=== PATIENT | female | born 1935 | race Caucasian/White ===

== ENCOUNTER 2017-11-16 08:40 | Emergency (ER) | payer MEDICARE ==
[~2017-11-16] VITALS: Ht 147.3 cm; Wt 46.7 kg
[~2017-11-16 08:40] MED LIST: APRISO0.375 GM PO; DAILY VITAMIN1 EAC3 PO; DICYCLOMINE HCL20 MG PO; ENTOCORT EC3 MG; HYOSCYAMINE0.125 M2 PO; LASIX20 MG PO; LOMOTIL TABLET1 EACH PO; OCUVITE TABLET1 EAC1 PO; POTASSIUM CHLO20 ME1; PREVACID30 MG PO; PROAIR HFA INH8.5 GM INH; PROBIOTIC & AC1 EACH; QUININE SULFAT324 MG PO; SPIRIVA18 MCG IH; TEMAZEPAM30 MG PO; ULTRAM 50MG50 MG PO; ZOLOFT50 MG PO
--- OUTSIDE RECORDS SUMMARY | 2017-11-16 08:43 | XMS REPORT ---
Author Organization Unknown Address [address] [place] [id number] Phone [phone] Care Team Providers Care Professor Of Biostatistics Name Role Phone RADHA STRANGE MD 82 [phone] STANTON STRANGE MD 114 [phone] DELFINO ESPINOZA MD 107 [phone] DIANN ANNE MD 126 [phone] Allergies Code Code System Name Reaction Severity Status Onset 2670 RxNorm Codeine Active Penicillins Active Notes: MYCINS Medications Name Status Start Date Stop Date albuterol sulfate 2.5 mg/3 mL (0.083 %) solution for nebulization Inhale 3 mL every 6 hours by nebulization route as needed for 10 days. Completed 03/11/2017 Apriso 0.375 gram capsule,extended release Active Not available Zithromax Z-Pacheco 250 mg tablet TAKE 2 TABLETS (500 MG) BY ORAL ROUTE ONCE DAILY FOR 1 DAY THEN 1 TABLET (250 MG) BY ORAL ROUTE ONCE DAILY FOR 4 DAYS Completed 11/10/2016 benzonatate 100 mg capsule Completed 07/07/2016 Breo Ellipta 100 mcg-25 mcg/dose powder for inhalation Active Not available Breo Ellipta 200 mcg-25 mcg/dose powder for inhalation Completed [address] - ER 3 mg capsule,delayed,extended release Active Not available cefdinir 300 mg capsule Completed 01/13/2017 ciprofloxacin 500 mg tablet Completed 07/07/2016 colestipol 1 gram tablet Active Not available dicyclomine 10 mg capsule Completed 05/13/2017 dicyclomine 20 mg tablet Active Not available diphenoxylate-atropine 2.5 mg-0.025 mg tablet Active Not available famotidine 20 mg tablet Completed 07/07/2016 fluticasone 50 mcg/actuation nasal spray,suspension [place] 1 spray twice a day by nasal route. Completed 02/10/2017 furosemide 40 mg tablet TAKE ONE TABLET BY MOUTH ONCE A DAY Active Not available Incruse Ellipta 62.5 mcg/actuation powder for inhalation ONCE IN THE AM Active Not available Klor-Con M20 mEq tablet,extended release every 24 hours by oral route. Active Not available lansoprazole 30 mg capsule,delayed release Active Not available Levaquin 500 mg tablet Take every 24 hours by oral route. Completed 02/10/2017 levocetirizine 5 mg tablet Completed 07/07/2016 metronidazole 250 mg tablet Completed 07/07/2016 metronidazole 500 mg tablet Completed 07/07/2016 minocycline 100 mg capsule Completed 11/11/2017 mupirocin 2 % topical ointment Completed 11/11/2017 prednisone 20 mg tablet Completed 07/07/2016 sertraline 100 mg tablet Take 1 tablet every day by oral route. Active Not available sertraline 25 mg tablet TAKE 1 TABLET BY MOUTH EVERY DAY Completed 02/10/2017 sertraline 50 mg tablet Take every 24 hours by oral route. Completed 02/10/2017 Spiriva Respimat 2.5 mcg/actuation solution for inhalation Use 2 puffs daily every morning Completed 11/11/2017 Spiriva with HandiHaler 18 mcg and inhalation capsules Inhale 1 capsule every day by inhalation route. Completed 08/12/2017 sucralfate 1 gram tablet TAKE ONE GRAM 3 TIMES A DAY Active Not available sulfamethoxazole 800 mg-trimethoprim 160 mg tablet Completed 05/13/2017 temazepam 30 mg capsule Take 1 capsule every day by oral route at bedtime. Active Not available tizanidine 2 mg tablet Take 1 tablet as needed by oral route at bedtime for 30 days. Active Not available tramadol 50 mg tablet Active Not available Ventolin HFA 90 mcg/actuation aerosol inhaler Active Not available Zostavax (PF) 19,400 unit/0.65 mL subcutaneous suspension Completed 2017 Problems Name Status Onset Date Source Major Depressive Disorder Active 11/10/2016 Insomnia Active 11/10/2016 Chronic Obstructive Lung Disease Unknown 11/10/2016 Chronic Obstructive Lung Disease Active 11/10/2016 Crohn's Disease Active 11/10/2016 Procedures Date Name Performed by 08/24/2016 Colonoscopy Information not available 08/24/2009 Cancer Surgery Notes: BLADDER Information not available 08/24/2004 Gastrointestinal Surgery Information not available 08/24/2004 Colonoscopy W/resection Information not available 08/24/2001 Cataract Surgery Information not available 08/24/1986 Breast Surgery Information not available 08/24/1971 Hysterectomy (Partial) Information not available Lab Results Date Name Specimen Result Interpretation Description Value Range Status Address 11/10/2016 CMP, Serum or Plasma Alt 17 U/L 0-55 U/L Final [facility]: [address] Ast 21 U/L 5-34 U/L Final [facility]: [address] Bun 13 mg/dL 7-20 mg/dL Final [facility]: [address] Alk Phos 106 unit/L 40-150 unit/L Final [facility]: [address] Glucose 94 mg/dL 70-99 mg/dL Final [facility]: [address] Albumin 3.5 g/dL 3.5-5.0 g/dL Final [facility]: [address] Creatinine 0.65 mg/dL 0.57-1.11 mg/dL Final [facility]: [address] eGFR Non- >60 mL/min/1.73m2 >60 mL/min/ 1.73m2 Final [facility]: [address] Total Bilirubin 0.3 mg/dL 0.2-1.2 mg/dL Final [facility]: [address] eGFR - >60 mL/min/1.73m2 >60 mL/min/1.73m2 Final [facility]: [address] Sodium 143 mEq/L 137-144 mEq/L Final [facility]: [address] Potassium 4.5 mEq/L 3.5-5.0 mEq/L Final [facility]: [address] Chloride 104 mmol/L 101-110 mmol/L Final [facility]: [address] Low Total Protein 6.3 g/dL 6.4-8.3 g/dL Final [facility]: [address] Calcium 9.5 mg/dL 8.4-10.2 mg/dL Final [facility]: [address] [place] [address], [place] Co2 28.2 mmol/L 22.0-31.0 mmol/L Final [facility]: [address] [place] [address], [place] Anion Gap 11 calc Final [facility]: [address] [place] [address], [place] Pulse Oximetry No observation recorded. [facility]: [id number] Past Encounters 11/11/2017 Insomnia; Mild Depression; Cramp in Lower Limb; Crohn's Disease; Atherosclerosis of Aorta; Acute Exacerbation of Chronic Obstructive Airways Disease; Body Mass Index 20-24 - Normal Filiberto Baker MD: [address] [place] [phone], Ph. [phone] 08/12/2017 Insomnia; Major Depressive Disorder; Lymphedema of Lower Extremity Filibertoscar Baker MD: [address] [place] [phone], Ph. 05/13/2017 Major Depressive Disorder; Insomnia; Pneumococcal Vaccination; Influenza Vaccination; Viral Immunization Filiberto Baker MD: [address] [place] [phone], Ph. 03/11/2017 Adult Health Examination; Advance Directive Discussed with Patient; Body Mass Index 20-24 - Normal; At Risk for Falls; Cellulitis of Lower Limb Filiberto Baker MD: [address] [place] [phone], Ph. [phone] 02/10/2017 Mild Depression; Insomnia; Hypoxemia Filiberto Baker MD: [address] [place] [phone], Ph. 01/13/2017 Major Depressive Disorder; Insomnia; Crohn's Disease; Atherosclerosis of Aorta Noemí Sauer MD: [address] [place] [phone], Ph. 12/01/2016 Acute Exacerbation of Chronic Obstructive Airways Disease; Acute Sinusitis Filibertoscar [place], MD: [address] [place] [phone], Ph. 11/26/2016 Acute Sinusitis; Acute Exacerbation of Chronic Obstructive Airways Disease Filiberto Baker MD: [address] [place] [phone], Ph. 11/10/2016 Insomnia; Lymphedema of Lower Extremity Filibertoscar Baker MD: [address] [place] [phone], Ph. [phone] 07/07/2016 Benign Essential Hypertension; Mixed Anxiety and Depressive Disorder; Acute Otitis Media Tiburcio Ramirez MD: [address] [place] [phone], Ph. 05/28/2016 Influenza Vaccination Tiburcio Ramirez MD: [address] [place] [phone], Ph. Social History Smoking Status Never Smoker (1/2 PPD) Vaccine List Vaccine Type influenza, high dose seasonal 05/28/20160.5 mL 05/13/20170.5 mL pneumococcal conjugate PCV 13 05/13/20170.5 mL Pneumococcal Conjugate, unspecified formulation 08/24/2005 zoster 05/13/20170.65 mL Plan of Care Patient Instructions It was good to see you in the office today for your Medicare Annual Wellness Visit. You have been provided some information on healthy nutrition, including a diet rich in fruits and vegetables, minimizing simple carbohydrates, salt, and saturated fats. I want to encourage regular cardiovascular exercise such as walking at least 30 minutes daily, 5 times per week. Please remember to schedule any preventive health measures that we talked about today. You have also been provided education on fall prevention and community- based lifestyle interventions to help reduce health risks and promote healthy living in your [employer] folder. Screening Recommendations 1. Vaccines Pneumococcal: discussed today and information sent with patient in their [place] [facility] health folder Influenza: discussed today and information sent with patient in their [place] [facility] health folder Shingles: discussed today and information sent with patient in their [place] [facility] health folder Tetanus: discussed today and information sent with patient in their [place] [facility] health folder 2. Mammography Screening: discussed today and information sent with patient in their [place] [facility] health folder 3. Colorectal cancer Screening Colonoscopy: discussed today and information sent with patient in their [place] [facility] health folder Fecal Occult Blood: discussed today and information sent with patient in their [place] [facility] health folder 4. Bone Mass Measurement: discussed today 5. Pap test / Pelvic Exam Screening: discussed today 6. Eye Exam Screening: discussed today 7. Cholesterol Screening: discussed today 8. Diabetes Screening: discussed today Reminders Provider Appointments None recorded. Lab None recorded. Referral None recorded. Procedures None recorded. Surgeries None recorded. Imaging None recorded. Vitals 11/11/2017 01:30PM Est Patient Height Weight BMI Blood Pressure 4 ft 10 in 104 lbs 21.7 kg/m2 126/74 mm[Hg] 08/12/2017 01:30PM Est Patient Height Weight BMI Blood Pressure 4 ft 10 in 110 lbs 23 kg/m2 138/72 mm[Hg] 05/13/2017 01:30PM Est Patient Height Weight BMI Blood Pressure 4 ft 10 in 107 lbs 22.4 kg/m2 132/70 mm[Hg] 03/11/2017 03:30PM Work In Same Day Height Weight BMI Blood Pressure 4 ft 10 in 107 lbs 22.4 kg/m2 128/76 mm[Hg] 02/10/2017 01:30PM Est Patient Height Weight BMI Blood Pressure 4 ft 10 in 108 lbs 22.6 kg/m2 122/62 mm[Hg] 01/13/2017 02:15PM Est Patient Height Weight BMI Blood Pressure 4 ft 10 in 110 lbs 23 kg/m2 120/84 mm[Hg] 12/01/2016 04:00PM Est Patient Height Weight Blood Pressure 4 ft 10 in 138/58 mm[Hg] 11/26/2016 03:30PM Work In Same Day Height Weight BMI Blood Pressure 4 ft 10 in 104 lbs 21.7 kg/m2 125/72 mm[Hg] 11/10/2016 02:00PM Est Patient Height Weight BMI Blood Pressure 4 ft 10 in 105 lbs 21.9 kg/m2 140/70 mm[Hg] 07/07/2016 01:00PM Est Patient Height Weight BMI Blood Pressure 4 ft 10 in 100 lbs 20.9 kg/m2 128/72 mm[Hg]
[2017-11-16] MEDS ORDERED: ALBUTEROL/IPRATROPIUM 3 ML NEB NEB ONE ×2 (09:15→11:30)
--- NOTE | 2017-11-16 09:49 | Diagnostic Imaging Report ---
PROCEDURE: X-RAY CHEST, TWO VIEWS COMPARISON: 03/12/2016. INDICATIONS: SHORTNESS OF BREATH, FLUID IN LUNGS FINDINGS: Lungs are well-inflated. No consolidation, pleural effusion, or pneumothorax. Stable cardiomediastinal contour with cardiomegaly and a large hiatal hernia. Tortuosity and atherosclerotic calcification of the thoracic aorta. Scoliotic curvature of the thoracic spine is unchanged. No acute osseous abnormality. CONCLUSION: No acute cardio pulmonary abnormality. Dictated by: Mook Rey M.D. on 11/16/2017 at 9:49 Electronically approved by: Mook Rey M.D. on 11/16/2017 at 9:49
[2017-11-16 09:51] LABS: BASOPHILS % 0.3 % (0.0-1.0); EOSINOPHILS # (AUTO) 0.1 (0.0-0.4); HEMATOCRIT 43.3 % (34.2-44.1); HEMOGLOBIN 13.5 g/dL (12.0-16.0); LYMPHOCYTES # (AUTO) 0.9 (1.0-3.2); LYMPHOCYTES % 7.4 % (18.0-39.1); MEAN CORPUSCULAR HEMOGLOBIN 29.1 pg (28-32); MEAN CORPUSCULAR HGB CONC 31.2 g/dL (31-35); MEAN CORPUSCULAR VOLUME 93.3 fL (81-99); MONOCYTES % 7.6 % (4.4-11.3); NEUTROPHILS # (AUTO) 10.5 (2.1-6.9); NEUTROPHILS % 83.5 % (38.7-80.0); PLATELET COUNT 222 x10e3/uL (140-360); RED BLOOD COUNT 4.64 x10e6/uL (3.6-5.1); RED CELL DISTRIBUTION WIDTH 15.3 % (11.7-14.4)
[2017-11-16 10:11] LABS: ALANINE AMINOTRANSFERASE 14 IU/L (0-55); ALBUMIN 3.3 g/dL (3.5-5.0); ALKALINE PHOSPHATASE 110 IU/L (40-150); ANION GAP 11.1 mmol/L (8-16); BLOOD UREA NITROGEN 13 mg/dL (7-26); BUN/CREATININE RATIO 21 (6-25); CALCIUM 9.2 mg/dL (8.4-10.2); CARBON DIOXIDE 31 mmol/L (22-29); CHLORIDE 103 mmol/L (98-107); CREATININE, SERUM 0.62 mg/dL (0.57-1.11); EST GLOMERULAR FILTRATION RATE > 60 ML/MIN (60-); GLUCOSE 98 mg/dL (74-118); POTASSIUM 4.1 mmol/L (3.5-5.1); SODIUM 141 mmol/L (136-145)
[2017-11-16] MEDS ORDERED: DEXAMETHASONE SOD PHOS 10 MG/1 ML VIAL IV ONE (11:30)
[2017-11-16] MEDS ORDERED: LEVOFLOXACIN 500MG/D5W 100ML 100 ML IV ONE (11:30)
[2017-11-16 11:44] VITALS: BP 120/76
== END 2017-11-16 13:16 | disposition home or self-care (01) ==
LOC: ER 08:40
DX: J44.0 Chronic obstructive pulmonary disease with (acute) lower respiratory infection (principal); J20.8 Acute bronchitis due to other specified organisms; R09.1 Pleurisy; Z87.891 Personal history of nicotine dependence
CPT/HCPCS: 36415; 71046; 80053; 83880; 84484; 85025; 93005; 94640; 99284; J1100; J1956